=== PATIENT | male | born 1960 | race Caucasian/White ===

== ENCOUNTER 2017-09-24 08:19 | Day surgery (SDC) | payer BC ==
[2017-09-24] MEDS ORDERED: LIDOCAINE 2% MDV (20MG/ML) 20ML VIAL IV ONE (08:20)
[2017-09-24] MEDS ORDERED: PROPOFOL 10 MG/ML VIAL IV ONE (08:20)
--- NOTE | 2017-09-24 14:40 | Operative Note ---
DATE OF SURGERY: 09/24/2017 OPERATION: COLONOSCOPY to the cecum with electrocautery snare polypectomy x1. INDICATION: Colorectal cancer screening. The patient did have previous colonoscopy in 2002 by my associate. At that time, a hyperplastic polyp was noted. He denies any current complaints. ANESTHESIA: Intravenous sedation was administered by the department of anesthesiology and included Diprivan titrated to effect. PROCEDURE: Following informed consent from this alert individual including a discussion of the risks and benefits of the procedure and an opportunity for the patient to ask questions, the patient was in the left lateral decubitus position. A digital rectal examination was performed. External hemorrhoid was noted. Following this, the Olympus [id number] video colonoscope was inserted into the rectum without resistance. The rectal mucosa had a normal appearance with normal folds and distensibility. The colonoscope was advanced into the sigmoid colon where scattered diverticula were noted. Also noted was a polyp measuring approximately 8 mm in size which appeared possibly to be inflammatory in type. It was initially traversed and the colonoscope was advanced to the level of the cecum without much difficulty. Throughout the remainder of the bowel, the mucosa appeared normal, the folds were normal, and the bowel was fairly well distensible. The cecum was well defined by noting the appendiceal orifice and ileocecal valve. From the base of the cecum, the colonoscope was then withdrawn. Again a few scattered diverticula were noted in the sigmoid colon. The polyp was then relocated at the proximal sigmoid colon and again appeared somewhat inflammatory but had an adenomatous appearance as well. For this reason, electrocautery snare polypectomy was employed, and the polyp was removed in the usual fashion. A white eschar was noted. There was no bleeding. The colonoscope was then further withdrawn back into a normal rectum where retroflexion accomplished following air insufflation demonstrated some small internal hemorrhoids. The endoscope was straightened and withdrawn. Again an external hemorrhoid was noted. The endoscope was removed. The patient tolerated the procedure well and was returned to the recovery area in stable condition. IMPRESSION: 1. An 8 mm sigmoid polyp removed with electrocautery snare polypectomy. 2. Sigmoid diverticulosis. 3. Small thrombosed external hemorrhoid. RECOMMENDATIONS: Further recommendations will be forthcoming pending results of pathology obtained today. The patient will be following up with Dr. Watts. As always, thank you for allowing me to participate in the care of your patient. CC: Sonal SANTIZO
== END 2017-09-24 11:06 | disposition home or self-care (01) ==
LOC: HOP 08:19
PROVIDERS: ATTEND Internal Medicine Gastroenterology
DX: Z12.11 Encounter for screening for malignant neoplasm of colon (principal); K63.5 Polyp of colon; K57.30 Diverticulosis of large intestine without perforation or abscess without bleeding; K64.5 Perianal venous thrombosis; E78.00 Pure hypercholesterolemia, unspecified; Z87.19 Personal history of other diseases of the digestive system

== ENCOUNTER 2019-04-18 12:08 | Day surgery (SDC) | payer BC ==
[~2019-04-18 12:08] MED LIST: ACETAMINOPHEN 1,000 MG/100 ML BTL IVPB ONE; CLINDAMYCIN 600MG/50ML PREMIX 600 MG/50 ML BAG IVPB ONE
[2019-04-18] MEDS ORDERED: MIDAZOLAM HCL 2MG/2ML VIAL IV ONE (12:09)
[2019-04-18] MEDS ORDERED: LIDOCAINE 2% MDV (20MG/ML) 20ML VIAL IV ONE (12:09)
[2019-04-18] MEDS ORDERED: PROPOFOL 10 MG/ML VIAL IV ONE (12:09)
[2019-04-18] MEDS ORDERED: FENTANYL PF 100MCG/2ML VIAL IV ONE (12:09)
[2019-04-18] MEDS ORDERED: RINGERS SOLUTION,LACTATED 1,000 ML IV ONE (12:30)
[2019-04-18] MEDS ORDERED: CLINDAMYCIN 600MG/50ML PREMIX 600 MG/50 ML BAG IVPB ONE (13:23)
== END 2019-04-18 14:14 | disposition home or self-care (01) ==
LOC: SUR 12:08
PROVIDERS: ATTEND Urology
DX: R97.20 Elevated prostate specific antigen [PSA] (principal); I10 Essential (primary) hypertension; E78.00 Pure hypercholesterolemia, unspecified; N52.9 Male erectile dysfunction, unspecified; G47.33 Obstructive sleep apnea (adult) (pediatric)
CPT/HCPCS: 76872; 76942; 55700; 01922; J3010; J7120